=== PATIENT | female | born 1935 | race Caucasian/White ===

== ENCOUNTER 2017-05-03 05:19 | Inpatient (IN) | payer OTHER ==
[~2017-05-03] VITALS: Ht 154.9 cm; Wt 78.0 kg
[2017-05-03] VITALS (7 sets, daily range): BP systolic 145–190; BP diastolic 84–93
[~2017-05-03 05:19] MED LIST: ADVAIR 250/501 DISK IH; ALBUTEROL17 G1 IH; ANTIBIOTIC; ASPIR 8181 M1 PO; ASPIRIN81 M1 PO; BENADRYL25 MG PO; BIOTENE1000 ML MM; BLOOD PRESSURE; BYSTOLIC5 MG PO; CALTRATE 6001 TABLET PO; CARDIZEM; CELEBREX; CELEBREX200 MG PO; CENTRUM SILVER1 EACH PO; CHLORTHALIDONE25 MG PO; CLEOCIN300 MG PO; COLACE100 MG PO; COUMADIN; COUMADIN,JANTOVE4 MG PO; COUMADIN3 M1 PO; GABAPENTIN100 MG PO; GLUCOSAMINE-CH1 EA27 PO; GUMMI BEAR MUL1 EACH PO; ISOPTIN SR240 M1 PO; K-DUR20 MEQ PO; LASIX; LASIX40 MG PO; LISINOPRIL; LOPRESSOR50 MG PO; MOBIC15 MG PO; ONE DAILY GUM200 MCG PO; PRAVACHOL20 MG PO; PRAVASTATIN; PRINIVIL20 MG PO; PROAIR HFA8.5 GM IH; PROTONIX; PROTONIX40 MG PO; SPIRIVA1 INHALATI IH; TYLENOL 8 HOUR650 MG PO; ULTRAM50 MG PO; VERAPAMIL HCL240 MG PO; XARELTO20 MG PO; ZESTRIL,PRINIVI40 M1 PO; ZESTRIL40 MG PO; ZOFRAN ODT4 MG PO; ZOLOFT50 MG PO
[2017-05-04] VITALS (9 sets, daily range): BP systolic 127–190; BP diastolic 80–98
[2017-05-04 05:32] LABS: HEMOGLOBIN 14.9 G/DL (11.9-15.5); MCV 91.1 FL (83-99)
[2017-05-04 10:58] LABS: BASOPHIL (%) 0.2 % (0-1); EOSINOPHIL (%) 0 % (0-5); HEMATOCRIT 47.1 % (36.0-46.0); HEMOGLOBIN 15.6 G/DL (11.9-15.5); IMMATURE GRANULOCYTE (%) 0.5 % (0.0-0.7); LYMPHOCYTE (%) 5.7 % (15-42); LYMPHOCYTE COUNT 1.1 K/uL (1.0-2.8); MCH 30.6 PG (29.0-34.0); MCHC 33.1 G/DL (30.0-36.0); MCV 92.5 FL (83-99); MONOCYTE (%) 9.2 % (3-12); MONOCYTE COUNT 1.8 K/uL (0-0.8); NEUTROPHIL (%) 84.4 % (45-76); NEUTROPHIL COUNT 16.8 K/uL (1.8-6.4); PLATELET COUNT 166 K/uL (156-360); RBC DIS.WIDTH-CV 13.3 % (11.8-14.6); RBC DIS.WIDTH-SD 45.4 % (39-53); RED BLOOD COUNT 5.09 M/uL (3.80-5.20); WHITE BLOOD COUNT 19.8 K/uL (4.1-10.2)
[2017-05-04 11:08] LABS: CHLORIDE 99 mEq/L (99-109); POTASSIUM 3.5 mEq/L (3.7-5.4); SODIUM 138 mEq/L (136-147)
[2017-05-04 11:10] LABS: GLUCOSE 128 mg/dL (70-99)
[2017-05-04 11:13] LABS: CREATININE 0.8 mg/dL (0.6-1.3); GFR ESTIMATE (CALCULATED) > 59 mL/min/
[2017-05-04 11:14] LABS: UREA NITROGEN (BUN) 19 mg/dL (9-23)
[2017-05-05 05:06] VITALS: BP 160/82
[2017-05-05 06:11] LABS: BASOPHIL (%) 0.2 % (0-1); EOSINOPHIL (%) 0.1 % (0-5); HEMATOCRIT 42.7 % (36.0-46.0); HEMOGLOBIN 13.8 G/DL (11.9-15.5); IMMATURE GRANULOCYTE (%) 0.4 % (0.0-0.7); LYMPHOCYTE (%) 7.4 % (15-42); LYMPHOCYTE COUNT 1.1 K/uL (1.0-2.8); MCH 29.7 PG (29.0-34.0); MCHC 32.3 G/DL (30.0-36.0); MCV 91.8 FL (83-99); MONOCYTE (%) 9.5 % (3-12); MONOCYTE COUNT 1.4 K/uL (0-0.8); NEUTROPHIL (%) 82.4 % (45-76); NEUTROPHIL COUNT 12.1 K/uL (1.8-6.4); PLATELET COUNT 149 K/uL (156-360); RBC DIS.WIDTH-CV 13.6 % (11.8-14.6); RBC DIS.WIDTH-SD 46.2 % (39-53); RED BLOOD COUNT 4.65 M/uL (3.80-5.20); WHITE BLOOD COUNT 14.7 K/uL (4.1-10.2)
[2017-05-05 06:20] LABS: CHLORIDE 102 MEQ/L (99-109); CREATININE 0.8 MG/DL (0.6-1.3); GFR ESTIMATE (CALCULATED) > 59 mL/min/; GLUCOSE 116 mg/dL (70-99); POTASSIUM 3.2 MEQ/L (3.7-5.4); SODIUM 139 MEQ/L (136-147); UREA NITROGEN (BUN) 16 mg/dL (9-23)
[2017-05-05 07:35] VITALS: BP 133/69
[2017-05-05 11:01] VITALS: BP 142/84
[2017-05-05 15:32] VITALS: BP 123/73
[2017-05-05 19:20] VITALS: BP 133/75
[2017-05-05 23:14] VITALS: BP 154/79
[2017-05-06 05:53] LABS: CHLORIDE 102 MEQ/L (99-109); CREATININE 0.8 MG/DL (0.6-1.3); GFR ESTIMATE (CALCULATED) > 59 mL/min/; GLUCOSE 123 mg/dL (70-99); POTASSIUM 3.7 MEQ/L (3.7-5.4); SODIUM 140 MEQ/L (136-147); UREA NITROGEN (BUN) 18 mg/dL (9-23)
[2017-05-06 07:34] VITALS: BP 138/88
== END 2017-05-06 16:34 | DRG 483 ==
LOC: SDC 05:19 → 3EAST 09:20 → 2SOUTH 09:20 → 3EAST 09:20 → 3WEST 09:20 → ENRESERV 09:48 → SDC 12:44 → ENRESERV 14:13 → SDC 15:06 → 3WEST 16:41 → ENRESERV 05-04 08:46 → 3EAST 05-04 18:12
PROVIDERS: Internal Medicine; Orthopaedic Surgery; Physician Assistant
PROC: 0RRK0J6 Replacement of Left Shoulder Joint with Synthetic Substitute, Humeral Surface, Open Approach (ICD-10-PCS; principal; 2017-05-03)
PROC: 5A09357 Assistance with Respiratory Ventilation, Less than 24 Consecutive Hours, Continuous Positive Airway Pressure (ICD-10-PCS; 2017-05-05)
DX: M19.012 Primary osteoarthritis, left shoulder (principal); I11.0 Hypertensive heart disease with heart failure; E87.6 Hypokalemia; G47.33 Obstructive sleep apnea (adult) (pediatric); Z96.653 Presence of artificial knee joint, bilateral; Z86.711 Personal history of pulmonary embolism; I50.9 Heart failure, unspecified; J44.9 Chronic obstructive pulmonary disease, unspecified; R09.02 Hypoxemia; R41.0 Disorientation, unspecified; T40.605A Adverse effect of unspecified narcotics, initial encounter; Y92.239 Unspecified place in hospital as the place of occurrence of the external cause; F41.9 Anxiety disorder, unspecified; F32.9 Major depressive disorder, single episode, unspecified; K21.9 Gastro-esophageal reflux disease without esophagitis; Z90.710 Acquired absence of both cervix and uterus
CPT/HCPCS: 71045; 80048; 82948; 83605; 85014; 85018; 85025; 94640; 94640 76; 94799; 99202; G0378; J0131; J0360; J0690; J1100; J1170; J1650; J2405; J2710; J2795; J7030; J7050; S0020